=== PATIENT | female | born 1960 | race African-American/Black ===

== ENCOUNTER 2017-07-03 19:56 | Emergency (ER) | payer OTHER ==
[~2017-07-03 19:56] MED LIST: ISOVUE-370 76%-LOCM 1 ML ONE; Iopamidol 370 76% 50 ML VIAL FS ONE
[2017-07-03 20:41] LABS: #Eosinphils 0.1 thou/uL (0.0-0.7); #Lymphocytes 0.6 thou/uL (1.20-3.40); #Monocytes 0.3 thou/uL (0.11-0.59); #Neutrophils 3.6 thou/uL (1.40-6.50); %Basophils 0.2 % (0.0-1.0); %Eosinophils 1.4 % (0.0-10.0); %Lymphocytes 12.7 % (21.0-51.0); %Monocytes 7.1 % (0.0-10.0); %Neutrophils 78.6 % (42.0-75.0); Hemoglobin 14.5 g/dL (12.0-16.0); Mean Corpuscular HGB CONC 33.5 g/dL (32.0-36.0); Mean Corpuscular Hemoglobin 32.9 pg (27.0-31.0); Mean Corpuscular Volume 98.4 fl (81.0-99.0); Mean Platelet Volume 6.9 fL (7.4-10.4); Platelet Count 296 thou/uL (130-400); RBC Distribution Width 11.7 % (11.5-14.5); White Blood Cell (WBC) Count 4.6 thou/uL (4.8-10.8)
[2017-07-03 21:01] LABS: ALT (SGPT) 21 U/L (8-55); AST (SGOT) 49 U/L (5-34); Albumin 4.1 g/dL (3.5-5.0); Alkaline Phosphatase 79 U/L (40-150); Anion Gap 10 mmol/L (10-20); BUN (Urea Nitrogen) 14 mg/dL (9.8-20.1); Bilirubin, Total 0.4 mg/dL (0.2-1.2); CK (CPK) 34 U/L (29-168); Calc. Creatinine Clearance 0 mL/min (70-130); Carbon Dioxide 25 mmol/L (22-29); Chloride 106 mmol/L (98-107); Estimated GFR-MDRD 89; Globulin 3.6 g/dL (2.4-3.5); Glucose 106 mg/dL (70-105); Protein, Total 7.7 g/dL (6.0-8.3); Sodium 137 mmol/L (136-145)
[2017-07-03 21:05] LABS: CKMB 0.4 ng/mL (0-6.6); Troponin I Less than 0.010 ng/mL (< 0.028)
--- NOTE | 2017-07-03 21:56 | RAD ---
CHEST ONE VIEW 07/03/17 HISTORY: Headache, diarrhea, back pain, chest pain. COMPARISON: Chest radiograph 2012. FINDINGS: There is some linear atelectasis left lung base. No focal air space consolidation, pneumonia, or effu daysi. No acute osseous abnormality. IMPRESSION: No acute intrathoracic abnormality. POS: [facility]
[2017-07-03] MEDS ORDERED: Ondansetron ODT 4 MG TAB ONE (22:13)
[2017-07-03] MEDS ORDERED: Famotidine 20 MG TAB ONE (22:13)
[2017-07-03] MEDS ORDERED: Acetaminophen 500 MG TAB ONE (22:16)
[2017-07-03 22:27] LABS: Bilirubin Negative (Negative); Blood, Urine Moderate (Negative); Clarity CLOUDY (Clear); Glucose, Urine (Dipstick) Negative (Negative); Leukocyte Trace (Negative); Nitrite Positive (Negative); Protein, Urine (Dipstick) Trace mg/dL (Neg-Trace); Specific Gravity, Urine 1.026 (1.002-1.036); Urobilinogen 0.2 mg/dL (0.2-1.0); pH, Urine 5.5 (5.0-9.0)
[2017-07-03 22:30] LABS: Bacteria/HPF 4+ HPF (None Seen); Hyaline Casts/LPF 0-3 HYALINE CAST LPF (0-3 Hyaline); Pathc Cast-AUWi Flag 0.14 (0-2.49); RBC/HPF 0-3 HPF (0-3); Squamous Epithelial 0-3 HPF (0-3)
[2017-07-03] MEDS ORDERED: cefTRIAXone\\ROCEPHIN 2 GM VIAL ONE (23:35)
[2017-07-04] MEDS ORDERED: Acetaminophen/Codeine 30-300mg Tablet ONE (01:17)
--- NOTE | 2017-07-04 10:05 | CT ---
PRELIMINARY REPORT/[facility]/EMERGENTY AFTER-HOURS PROCEDURE CT Abdomen and Pelvis With Intravenous Contrast CLINICAL HISTORY: 57 years old, female; Pain; Abdominal pain; Generalized; Patient HX: 57f presents to the ed for upper abdominal pain, diarrhea and intermittent back pain. Denies fever, chills. Denies uri or uti symptom s. Reports history of bariatric surgery in 2001 with revision. Reports multiple skin tucks. Reports unsure if she still has her gb. TECHNIQUE: Axial computed tomography images of the abdomen and pelvis with intravenous contrast. Coronal reforma tted images were created and reviewed. COMPARISON: No relevant prior studies available. FINDINGS: Lung bases: Linear LEFT basilar subsegmental atelectasis. ABDOMEN: Liver: Unremarkable. No mass. Gallbladder and bile ducts: The gallbladder has been surgically removed. There is minimal intrahepati c and extrahepatic biliary ductal dilatation most likely from prior cholecystectomy. There is no evid ence of common bile duct stone. Pancreas: Trace pancreatic ductal dilatation. Spleen: Unremarkable. No splenomegaly. Adrenals: Unremarkable. No mass. Kidneys and ureters: Mild RIGHT hydronephrosis with dilated RIGHT extrarenal pelvis. UPJ stricture Stomach and bowel: Postoperative changes from prior gastric bypass. No obstruction. No mucosal thicke jason. PELVIS: Appendix: No findings to suggest acute appendicitis. Bladder: Unremarkable. No mass. Reproductive: Unremarkable as visualized. ABDOMEN and PELVIS: Intraperitoneal space: Unremarkable. No free air. No significant fluid collection. Bones/joints: No acute fracture. No dislocation. Soft tissues: Unremarkable. Vasculature: Multiple pelvic phleboliths No abdominal aortic aneurysm. Lymph nodes: Unremarkable. No enlarged lymph nodes. IMPRESSION: No evidence of acute intra-abdominal or pelvic pathology. Mild RIGHT hydronephrosis with RIGHT UPJ st ricture There are additional nonemergent findings discussed in the body of the report. Thank you for allowing us to participate in the care of your patient. Dictated and Authenticated by: Kory Tavera MD 07/04/2017 12:41 AM Central Time ([place] & [place]) FINAL REPORT EMERGENCY AFTER HOURS STUDY CT ABDOMEN WITH CONTRAST CT PELVIS WITH CONTRAST: DATE: 07/03/17. TIME: 11:44 p.m. HISTORY: A 57-year-old female with upper abdominal pain. COMPARISON: 09/11/08. TECHNIQUE: IV injection of iodinated contrast media: administered. Oral contrast media: administered. FINDINGS: Left lower lobe plate-like density represents pulmonary scar. Again noted are the bariatric surgical changes involving the stomach and adjacent bowel loops. The gallbladder has been removed some time after the previous CT. There is now diffuse intrahepatic biliary ductal dilation, and diffuse mild p ancreatic ductal dilation. The biliary ductal dilation is due to reservoir effect secondary to the c holecystectomy. No portal vein thrombosis or solid hepatic mass. Dilated right extrarenal pelvis, a nd mild to moderate dilation of right calyces representing chronic right UPJ obstruction, similar in degree to 2009 CT. No left-sided hydronephrosis. No adrenal mass. No splenomegaly. There is a con trast and air-filled dilated bowel loop in the left upper quadrant, which appears to be a dilated sma ll bowel loop. This is a new finding since the previous CT. The rest of the small bowel loops are n ot dilated. No signs of acute colonic diverticulitis. Normal appendix, abdominal aorta, and urinary bladder. No ascites or pneumoperitoneum. Minor disagreements with preliminary report by [facility]. No major disagreement. IMPRESSION: 1. Status post bariatric surgery. 2. Dilated small bowel loop in the left upper quadrant, new since the previous CT of 2008. Perhaps this is related to the bariatric surgery. The rest of the small bowel loops are not dilated. 3. Chronic right ureteropelvic junction (UPJ) obstruction. 4. Status post cholecystectomy. 5. Diffuse dilation of the biliary tree, probably due to the cholecystectomy. 6. Diffuse mild dilation of the pancreatic duct, greater than on the previous CT, of uncertain etiol ogy. Consider ERCP MANNY Dyson POS: [facility]
== END 2017-07-04 01:30 | disposition home or self-care (01) ==
LOC: EEVIPCON 19:56 → ERS 19:56
DX: N39.0 Urinary tract infection, site not specified (principal)
CPT/HCPCS: 36415; 71045; 74177; 80053; 81003; 81015; 82553; 83690; 83880; 84484; 85025; 87077; 87086; 87186; 93005; 96361; 96365; 96372; J0696; Q0162

== ENCOUNTER 2017-08-27 12:44 | Outpatient (CLI) | payer OTHER ==
--- NOTE | 2017-08-27 15:29 | NM ---
RADIONUCLIDE DIURETIC RENOGRAM: HISTORY: Right UPJ obstruction. Crossing vessel and stricture of ureter without hydronephrosis. RADIOPHARMACEUTICAL: Technetium 99m MAG3 8.4 millicuries injected intravenously. DIURETIC: Lasix 33.5 mg IV injected 15 minutes prior to the radiopharmaceutical. FINDINGS: Imaging was performed with a Crowder catheter in the urinary bladder. There was good blood flow to the kidneys bilaterally, with good tracer uptake on either side. Differ ential function measures 56.5% on the right and 43.5% on the left. There is slower tracer excretion by the right compared to the left kidney, with both renogram curves demonstrating downward slopes. T here is some residual tracer in the right renal pelvis, on the delayed images. IMPRESSION: No evidence of high grade urinary tract obstruction. POS: [facility]
== END 2017-08-27 12:45 | disposition home or self-care (01) ==
LOC: NM 12:44
PROVIDERS: ATTEND Urology
DX: N13.5 Crossing vessel and stricture of ureter without hydronephrosis (principal)
CPT/HCPCS: 78708; A4641; A9562

== ENCOUNTER 2017-11-29 16:11 | Emergency (ER) | payer OTHER ==
[2017-11-29 16:42] LABS: Bilirubin Negative (Negative); Blood, Urine Negative (Negative); Clarity CLEAR (Clear); Glucose, Urine (Dipstick) Negative (Negative); Leukocyte Negative (Negative); Nitrite Negative (Negative); Protein, Urine (Dipstick) Negative (Neg-Trace); Specific Gravity, Urine 1.026 (1.002-1.036); pH, Urine 5.5 (5.0-9.0)
[2017-11-29 17:21] LABS: #Eosinphils 0.1 thou/uL (0.0-0.7); #Lymphocytes 0.9 thou/uL (1.20-3.40); #Monocytes 0.3 thou/uL (0.11-0.59); #Neutrophils 3.5 thou/uL (1.40-6.50); %Eosinophils 1.3 % (0.0-10.0); %Lymphocytes 18.6 % (21.0-51.0); %Monocytes 5.3 % (0.0-10.0); %Neutrophils 74.8 % (42.0-75.0); Hemoglobin 12.1 g/dL (12.0-16.0); Mean Corpuscular Hemoglobin 30.2 pg (27.0-31.0); Mean Corpuscular Volume 94.3 fL (78.0-98.0); Mean Platelet Volume 7.4 fL (7.4-10.4); Platelet Count 287 thou/uL (130-400); RBC Distribution Width 13.2 % (11.5-14.5); Red Blood Cell (RBC) Count 4.01 mill/uL (4.20-5.40); White Blood Cell (WBC) Count 4.6 thou/uL (4.8-10.8)
[2017-11-29 17:47] LABS: ALT (SGPT) 12 U/L (8-55); AST (SGOT) 26 U/L (5-34); Alkaline Phosphatase 82 U/L (40-150); Anion Gap 13 mmol/L (10-20); BUN (Urea Nitrogen) 13 mg/dL (9.8-20.1); Bilirubin, Total 0.2 mg/dL (0.2-1.2); Calc. Creatinine Clearance 0 mL/min (70-130); Calcium 8.8 mg/dL (7.8-10.44); Carbon Dioxide 24 mmol/L (22-29); Chloride 102 mmol/L (98-107); Estimated GFR-MDRD Greater than 90; Globulin 3.5 g/dL (2.4-3.5); Glucose 84 mg/dL (70-105); Lipase 52 U/L (8-78); Protein, Total 7.5 g/dL (6.0-8.3); Sodium 135 mmol/L (136-145)
[2017-11-29] MEDS ORDERED: Mag-Al 1200 mg/1200 mg/30 ML UDCUP ONE (18:37)
[2017-11-29] MEDS ORDERED: Lidocaine Viscous Sol 2% 15 ml UD Cup ONE (18:37)
[2017-11-29 19:04] LABS: CKMB 0.6 ng/mL (0-6.6); Troponin I Less than 0.010 ng/mL (< 0.028)
== END 2017-11-29 20:15 | disposition home or self-care (01) ==
LOC: ERS 16:11
DX: R10.13 Epigastric pain (principal); R63.0 Anorexia
CPT/HCPCS: 36415; 80053; 81003; 82553; 83690; 84484; 85025; 93005

== ENCOUNTER 2019-09-19 09:06 | Outpatient (CLI) | payer BC ==
--- NOTE | 2019-09-19 10:01 | CT ---
CT THORAX WITHOUT IV CONTRAST: Date: 09/19/2019 INDICATION: History of pulmonary nodule with follow-up. COMPARISON: Prior CT of the thorax with contrast dated 05/08/2019. FINDINGS: The peribronchial ground-glass opacity seen involving the anterior segment of the left upper lobe, as well as portions of the lingula, have intervally resolved. There are areas of improving subsegmental volume loss in the left lower lobe. There is a small calcified granuloma in the right lower lobe. No suspicious pulmonary nodule is evident. No pleural effusion is noted. There is a small calcified gra nuloma in the right middle lobe. Visualized mediastinum demonstrates mild scattered vascular calcific ations. No enlarged lymph nodes are noted. Upper abdomen demonstrates a small hiatal hernia and postprocedural change of cholecystectomy and gas tric bypass. Unopacified adrenal glands are unremarkable appearing. There is mild scattered degenerat junie and osteoarthritic change. No definite acute osseous abnormality is evident. IMPRESSION: 1. Interval resolution of the peribronchial ground-glass opacities involving the left upper lobe and lingula seen on the comparison examination. 2. Improving subsegmental volume loss in the left lower lobe. 3. Small hiatal hernia. POS: [facility]
== END 2019-09-19 09:07 | disposition home or self-care (01) ==
LOC: BICCT 09:06
PROVIDERS: ATTEND Internal Medicine Critical Care Medicine
DX: R91.1 Solitary pulmonary nodule (principal); R91.8 Other nonspecific abnormal finding of lung field
CPT/HCPCS: 71250

== ENCOUNTER 2021-09-05 08:33 | Outpatient (CLI) | payer BC | END 2021-09-05 08:34 | disposition home or self-care (01) | LOC: BICMAMMO 08:33 | PROVIDERS: ATTEND Student in an Organized Health Care Education/Training Program | DX: Z12.31 Encounter for screening mammogram for malignant neoplasm of breast (principal) | CPT/HCPCS: 77063; 77067 ==

== ENCOUNTER 2023-09-12 07:52 | Outpatient (CLI) | payer BC | END 2023-09-12 07:53 | disposition home or self-care (01) | LOC: BICMAMMO 07:52 | PROVIDERS: ATTEND Nurse Practitioner Family | DX: Z12.31 Encounter for screening mammogram for malignant neoplasm of breast (principal) | CPT/HCPCS: 77063; 77067 ==

== ENCOUNTER 2024-09-12 07:47 | Outpatient (CLI) | payer OTHER, BC | END 2024-09-12 07:48 | disposition home or self-care (01) | LOC: BICMAMMO 07:47 | PROVIDERS: ATTEND Nurse Practitioner Family | DX: Z12.31 Encounter for screening mammogram for malignant neoplasm of breast (principal); N64.89 Other specified disorders of breast | CPT/HCPCS: 77063; 77067 ==